=== PATIENT | female | born 1960 | race Caucasian/White ===

== ENCOUNTER 2016-07-09 11:33 | Emergency (ER) | payer OTHER ==
[~2016-07-09] VITALS: Ht 165.1 cm; Wt 118.6 kg
[~2016-07-09 11:33] MED LIST: ALBUTEROL SULFAT4 M1 PO; AMBIEN10 MG; AMITRIPTYLINE H25 MG PO; ASPIRIN325 MG PO; ATENOLOL PO; ATENOLOL25 M1 PO; Aspirin PO; Ecotrin PO; FOLIC ACID1 MG PO; HYDROCHLOROTHIA25 MG PO; IMDUR30 MG PO; ISOSORBIDE DINI30 MG PO; KLONOPIN1 MG PO; LANSOPRAZOLE PO; LANSOPRAZOLE30 MG PO; LEVOTHROID,S0.175 M1 PO; LEVOTHROID200 MCG PO; LEVOTHYROXINE200 MC1 PO; LEVOXYL175 MCG PO; LIPITOR80 MG PO; LISINOPRIL5 MG PO; Levothroid,Synthroid PO; MELOXICAM15 MG PO; MIRAPEX0.25 MG PO; MITRAZOL 2% CRE45 GM TP; OMEPRAZOLE40 M1 PO; PLAVIX75 MG PO; PREVACID30 MG PO; PROTONIX40 M1 PO; Pravachol PO; Protonix PO; SIMVASTATIN40 MG PO; TENORMIN25 MG PO; TESSALON PERLE100 MG PO; THEO-24200 MG PO; THEOPHYLLINE A200 M1 PO; Tenormin PO; Theo-Dur,Theocron PO; Tylenol Regular Stre PO; VOSPIRE ER4 MG PO; ZESTRIL,PRINIVIL5 MG PO; ZITHROMAX Z-PA250 MG PO; Zantac PO; Zocor PO
[2016-07-09] MEDS ORDERED: VIBRAMYCIN100 MG PO (14:05)
[2016-07-09] MEDS ORDERED: ULTRAM50 MG PO (14:05)
[2016-07-09] MEDS ORDERED: NAPROSYN500 MG PO (14:13)
[2016-07-09 14:42] VITALS: BP 128/70
== END 2016-07-09 14:43 | disposition home or self-care (01) ==
LOC: EME 11:33
PROC: 0H9EXZX Drainage of Left Lower Arm Skin, External Approach, Diagnostic (ICD-10-PCS; principal; 2016-07-09)
DX: L02.414 Cutaneous abscess of left upper limb (principal); L03.114 Cellulitis of left upper limb; I10 Essential (primary) hypertension; I25.2 Old myocardial infarction; F17.200 Nicotine dependence, unspecified, uncomplicated; Z88.6 Allergy status to analgesic agent
CPT/HCPCS: 87070; 87075; 87077; 87147; 87186; 87205; 99281; 99283

== ENCOUNTER 2016-11-19 13:50 | Emergency (ER) | payer OTHER ==
[~2016-11-19 13:50] MED LIST changes: +NAPROSYN500 MG PO; +ULTRAM50 MG PO; +VIBRAMYCIN100 MG PO
[2016-11-19] MEDS ORDERED: BACTRIM,SEPT1 TABLET PO (15:04)
[2016-11-19] MEDS ORDERED: NAPROSYN500 MG PO (15:04)
[2016-11-19 15:10] VITALS: BP 135/64
== END 2016-11-19 15:10 | disposition home or self-care (01) ==
LOC: EME 13:50
PROC: 0H9EXZZ Drainage of Left Lower Arm Skin, External Approach (ICD-10-PCS; principal; 2016-11-19)
DX: L02.414 Cutaneous abscess of left upper limb (principal); Z86.14 Personal history of Methicillin resistant Staphylococcus aureus infection; I10 Essential (primary) hypertension; E78.00 Pure hypercholesterolemia, unspecified; E03.9 Hypothyroidism, unspecified; Z79.02 Long term (current) use of antithrombotics/antiplatelets; Z79.82 Long term (current) use of aspirin; F17.200 Nicotine dependence, unspecified, uncomplicated
CPT/HCPCS: 99281; 99284

== ENCOUNTER 2017-04-12 13:27 | Emergency (ER) | payer OTHER ==
[~2017-04-12] VITALS: Ht 165.1 cm; Wt 117.4 kg
[~2017-04-12 13:27] MED LIST changes: +ATENOLOL25 MG PO; +BACTRIM,SEPT1 TABLET PO; +BROVANA15 MCG/2 M IH; +PULMICORT0.5 MG/21 IH; +SEROQUEL200 MG PO; +ULTRACET1 TABLET PO; +VITAMIN D31000 UNIT PO; +ZETIA10 MG PO
[2017-04-12 16:48] LABS: CHLORIDE 98 mEq/L (99-109); POTASSIUM 4.1 mEq/L (3.7-5.4); SODIUM 134 mEq/L (136-147)
[2017-04-12 16:50] LABS: GLUCOSE 88 mg/dL (70-99)
[2017-04-12 16:51] LABS: ANION GAP 12 MEQ/L (2-14)
[2017-04-12 16:52] LABS: TOTAL BILIRUBIN 0.5 mg/dL (0.0-1.0)
[2017-04-12 16:54] LABS: ALKALINE PHOSPHATASE 130 IU/L (3-129); GFR ESTIMATE (CALCULATED) 54 mL/min/
[2017-04-12 16:55] LABS: UREA NITROGEN (BUN) 22 mg/dL (9-23)
[2017-04-12 17:15] LABS: HEMATOCRIT 33.5 % (36.0-46.0); MCH 25.5 PG (29.0-34.0); MCHC 33.1 G/DL (30.0-36.0); MCV 76.8 FL (83-99); MEAN PLAT.VOLUME 9.7 uM^3 (9.5-12.4); PLATELET COUNT 244 K/uL (156-360); RBC DIS.WIDTH-CV 15.7 % (11.8-14.6); RBC DIS.WIDTH-SD 43.2 % (39-53); RED BLOOD COUNT 4.36 M/uL (3.80-5.20); WHITE BLOOD COUNT 6.7 K/uL (4.1-10.2)
[2017-04-12] MEDS ORDERED: LORTAB 5-325 M1 EACH PO (21:19)
[2017-04-12] MEDS ORDERED: MOTRIN600 MG PO (21:19)
[2017-04-13 00:24] VITALS: BP 105/78
[2017-04-14] MEDS ORDERED: PERCOCET 5/31 TABLET PO (22:02)
[2017-04-14] MEDS ORDERED: VALIUM5 MG PO (22:02)
== END 2017-04-13 00:25 | disposition home or self-care (01) ==
LOC: EME 13:27
PROVIDERS: Physician Assistant Medical
DX: S76.012D Strain of muscle, fascia and tendon of left hip, subsequent encounter (principal); Z91.81 History of falling
CPT/HCPCS: 73700; 80053; 81003; 85027; 86850; 86900; 86901; 99281; 99285; J2270; J2405

== ENCOUNTER → 2017-06-29 | Outpatient (CLI) | payer OTHER ==
[~2017-06-29] MED LIST changes: +LO-DOSE ASPIRIN81 M1 PO; +LORTAB 5-325 M1 EACH PO; +MOTRIN600 MG PO; +PERCOCET 5/31 TABLET PO; +PERCOCET 7.51 TABLET PO; +SYNTHROID137 MCG PO; +VALIUM5 MG PO; +VITAMIN D34000 UNIT PO; +XARELTO20 MG PO
== END | disposition home or self-care (01) ==
LOC: MRI 13:16 → RAD 13:30
DX: S72.042A Displaced fracture of base of neck of left femur, initial encounter for closed fracture (principal); M87.852 Other osteonecrosis, left femur; M25.452 Effusion, left hip
CPT/HCPCS: 73721

== ENCOUNTER 2017-07-01 10:11 | Inpatient (IN) | payer OTHER ==
[~2017-07-01] VITALS: Ht 165.1 cm; Wt 112.0 kg
[~2017-07-01 10:11] MED LIST changes: -LO-DOSE ASPIRIN81 M1 PO; -PERCOCET 7.51 TABLET PO; -SYNTHROID137 MCG PO; -VITAMIN D34000 UNIT PO; -XARELTO20 MG PO
[2017-07-01 11:07] LABS: HEMATOCRIT 30.6 % (36.0-46.0); HEMOGLOBIN 10.3 G/DL (11.9-15.5); MCH 25.8 PG (29.0-34.0); MCHC 33.7 G/DL (30.0-36.0); MCV 76.5 FL (83-99); PLATELET COUNT 211 K/uL (156-360); RBC DIS.WIDTH-CV 16.4 % (11.8-14.6); RBC DIS.WIDTH-SD 46.1 % (39-53); WHITE BLOOD COUNT 6.5 K/uL (4.1-10.2)
[2017-07-01 11:15] LABS: INTER. NORMALIZED RATIO 1.2
[2017-07-01 11:17] LABS: PTT 33.4 SEC (25-37)
[2017-07-01 11:18] LABS: ALBUMIN 3.8 g/dL (3.2-4.8)
[2017-07-01 11:19] LABS: CHLORIDE 92 mEq/L (99-109); POTASSIUM 5.1 mEq/L (3.7-5.4); SODIUM 126 mEq/L (136-147)
[2017-07-01 11:21] LABS: GLUCOSE 91 mg/dL (70-99); TOTAL PROTEIN 7.7 g/dL (6.4-8.3)
[2017-07-01 11:23] LABS: TOTAL BILIRUBIN 0.3 mg/dL (0.0-1.0)
[2017-07-01 11:24] LABS: ALKALINE PHOSPHATASE 124 IU/L (3-129)
[2017-07-01 11:25] LABS: CREATININE 0.9 mg/dL (0.6-1.3); GFR ESTIMATE (CALCULATED) > 59 mL/min/
[2017-07-01 11:26] LABS: AST (GOT) 26 IU/L (2-34); UREA NITROGEN (BUN) 21 mg/dL (9-23)
[2017-07-01 11:27] LABS: ALT (GPT) 12 IU/L (3-49)
[2017-07-01] MEDS ORDERED: SYNTHROID137 MCG PO (13:22)
[2017-07-01] MEDS ORDERED: VITAMIN D34000 UNIT PO (13:24)
[2017-07-01] MEDS ORDERED: LO-DOSE ASPIRIN81 M1 PO (13:24)
[2017-07-01] MEDS ORDERED: PERCOCET 7.51 TABLET PO (13:26)
[2017-07-01] MEDS ORDERED: XARELTO20 MG PO (13:27)
[2017-07-01 20:43] VITALS: BP 134/63
[2017-07-01 21:00] VITALS: BP 130/63
[2017-07-02 00:26] VITALS: BP 123/57
[2017-07-02 04:16] VITALS: BP 137/62
[2017-07-02 04:23] LABS: HEMATOCRIT 30.7 % (36.0-46.0); HEMOGLOBIN 10.4 G/DL (11.9-15.5); MCH 25.7 PG (29.0-34.0); MCHC 33.9 G/DL (30.0-36.0); PLATELET COUNT 203 K/uL (156-360); RBC DIS.WIDTH-CV 16.4 % (11.8-14.6); RBC DIS.WIDTH-SD 45.5 % (39-53); RED BLOOD COUNT 4.04 M/uL (3.80-5.20); WHITE BLOOD COUNT 7.8 K/uL (4.1-10.2)
[2017-07-02 04:35] LABS: CHLORIDE 96 mEq/L (99-109); POTASSIUM 4.3 mEq/L (3.7-5.4); SODIUM 130 mEq/L (136-147)
[2017-07-02 04:36] LABS: GLUCOSE 97 mg/dL (70-99)
[2017-07-02 04:40] LABS: CREATININE 0.9 mg/dL (0.6-1.3); GFR ESTIMATE (CALCULATED) > 59 mL/min/
[2017-07-02 04:41] LABS: UREA NITROGEN (BUN) 17 mg/dL (9-23)
[2017-07-02 10:54] LABS: HEMATOCRIT 27.6 % (36.0-46.0); HEMOGLOBIN 9.1 G/DL (11.9-15.5); MCV 78.4 FL (83-99)
[2017-07-02 16:04] VITALS: BP 92/55
[2017-07-02 20:11] VITALS: BP 91/55
[2017-07-02 23:53] VITALS: BP 84/52
[2017-07-03] VITALS (19 sets, daily range): BP systolic 74–122; BP diastolic 42–75
[2017-07-03 04:22] LABS: HEMATOCRIT 19.3 % (36.0-46.0); MCH 25.8 PG (29.0-34.0); MCHC 33.2 G/DL (30.0-36.0); MCV 77.8 FL (83-99); PLATELET COUNT 182 K/uL (156-360); RBC DIS.WIDTH-CV 16.4 % (11.8-14.6); RBC DIS.WIDTH-SD 47.4 % (39-53); WHITE BLOOD COUNT 7.4 K/uL (4.1-10.2)
[2017-07-03 04:23] LABS: HEMOGLOBIN 6.4 G/DL (11.9-15.5); RED BLOOD COUNT 2.48 M/uL (3.80-5.20)
[2017-07-03 04:28] LABS: CHLORIDE 96 mEq/L (99-109); POTASSIUM 4.6 mEq/L (3.7-5.4); SODIUM 130 mEq/L (136-147)
[2017-07-03 04:29] LABS: GLUCOSE 122 mg/dL (70-99)
[2017-07-03 04:33] LABS: CREATININE 0.8 mg/dL (0.6-1.3); GFR ESTIMATE (CALCULATED) > 59 mL/min/
[2017-07-03 04:34] LABS: UREA NITROGEN (BUN) 18 mg/dL (9-23)
[2017-07-03 04:52] LABS: APPEARANCE SL.HAZY ((CLEAR)); BILIRUBIN NEGATIVE; BLOOD NEGATIVE; COLOR YELLOW ((YELLOW)); GLUCOSE (STRIP) NEGATIVE; KETONES NEGATIVE; LEUKOCYTES MODERATE; NITRITE POSITIVE; PROTEIN (STRIP) NEGATIVE; SPECIFIC GRAVITY 1.023 (1.000-1.030); UROBILINOGEN 0.2 MG/DL (0.2-1.0)
[2017-07-03 05:42] LABS: BACTERIA NONE SEEN /HPF; EPITHELIAL CELLS 1+ /HPF; MUCUS TRACE /LPF; RED BLOOD CELLS 0-5 /HPF (0-5); WHITE BLOOD CELLS 20-30 /HPF (0-5)
[2017-07-03 16:46] LABS: HEMATOCRIT 25.8 % (36.0-46.0); MCV 78.7 FL (83-99)
[2017-07-03 16:47] LABS: HEMOGLOBIN 8.9 G/DL (11.9-15.5)
[2017-07-04 03:51] VITALS: BP 127/59
[2017-07-04 07:53] VITALS: BP 102/65
[2017-07-04 09:25] LABS: HEMATOCRIT 25.2 % (36.0-46.0); HEMOGLOBIN 8.6 G/DL (11.9-15.5); MCH 26.9 PG (29.0-34.0); MCHC 34.1 G/DL (30.0-36.0); MCV 78.8 FL (83-99); PLATELET COUNT 152 K/uL (156-360); RBC DIS.WIDTH-CV 16.2 % (11.8-14.6); RBC DIS.WIDTH-SD 46.6 % (39-53); WHITE BLOOD COUNT 8.5 K/uL (4.1-10.2)
[2017-07-04 09:50] LABS: CHLORIDE 97 MEQ/L (99-109); CREATININE 0.6 MG/DL (0.6-1.3); GFR ESTIMATE (CALCULATED) > 59 mL/min/; GLUCOSE 108 mg/dL (70-99); POTASSIUM 3.8 MEQ/L (3.7-5.4); SODIUM 129 MEQ/L (136-147); UREA NITROGEN (BUN) 10 mg/dL (9-23)
[2017-07-04 11:50] VITALS: BP 109/53
[2017-07-04 15:00] VITALS: BP 115/58
[2017-07-04 20:24] VITALS: BP 112/54
[2017-07-05 00:40] VITALS: BP 114/55
[2017-07-05 04:15] VITALS: BP 155/72
[2017-07-05 05:40] LABS: HEMATOCRIT 21.7 % (36.0-46.0); HEMOGLOBIN 7.2 G/DL (11.9-15.5); MCH 26.4 PG (29.0-34.0); MCHC 33.2 G/DL (30.0-36.0); MCV 79.5 FL (83-99); PLATELET COUNT 140 K/uL (156-360); RBC DIS.WIDTH-CV 16.6 % (11.8-14.6); RBC DIS.WIDTH-SD 48.1 % (39-53); RED BLOOD COUNT 2.73 M/uL (3.80-5.20); WHITE BLOOD COUNT 7.7 K/uL (4.1-10.2)
[2017-07-05 06:11] LABS: CHLORIDE 99 MEQ/L (99-109); CREATININE 0.6 MG/DL (0.6-1.3); GFR ESTIMATE (CALCULATED) > 59 mL/min/; GLUCOSE 110 mg/dL (70-99); POTASSIUM 3.5 MEQ/L (3.7-5.4); SODIUM 130 MEQ/L (136-147); UREA NITROGEN (BUN) 11 mg/dL (9-23)
[2017-07-05 07:50] VITALS: BP 119/59
[2017-07-05 10:11] LABS: HEMATOCRIT 25.3 % (36.0-46.0); HEMOGLOBIN 8.5 G/DL (11.9-15.5); MCV 80.3 FL (83-99)
[2017-07-05 11:25] LABS: STOOL OCCULT BLD 1ST SPECIMEN NEGATIVE
[2017-07-05 12:00] VITALS: BP 101/65
[2017-07-05 20:28] VITALS: BP 109/65
[2017-07-05 23:26] VITALS: BP 107/60
[2017-07-06 04:28] VITALS: BP 108/64
[2017-07-06 06:37] LABS: HEMATOCRIT 21.6 % (36.0-46.0); HEMOGLOBIN 7.1 G/DL (11.9-15.5); MCH 26.6 PG (29.0-34.0); MCHC 32.9 G/DL (30.0-36.0); MCV 80.9 FL (83-99); PLATELET COUNT 167 K/uL (156-360); RBC DIS.WIDTH-CV 16.7 % (11.8-14.6); RBC DIS.WIDTH-SD 49.2 % (39-53); RED BLOOD COUNT 2.67 M/uL (3.80-5.20)
[2017-07-06 06:41] LABS: CHLORIDE 99 MEQ/L (99-109); CREATININE 0.7 MG/DL (0.6-1.3); GFR ESTIMATE (CALCULATED) > 59 mL/min/; GLUCOSE 100 mg/dL (70-99); SODIUM 129 MEQ/L (136-147); UREA NITROGEN (BUN) 12 mg/dL (9-23)
[2017-07-06 06:42] LABS: POTASSIUM 4.3 MEQ/L (3.7-5.4)
[2017-07-06 08:24] VITALS: BP 120/56
[2017-07-06 10:37] LABS: CHLORIDE 99 MEQ/L (99-109); CREATININE 0.7 MG/DL (0.6-1.3); GFR ESTIMATE (CALCULATED) > 59 mL/min/; GLUCOSE 116 mg/dL (70-99); POTASSIUM 4.4 MEQ/L (3.7-5.4); SODIUM 133 MEQ/L (136-147); UREA NITROGEN (BUN) 10 mg/dL (9-23)
[2017-07-06 10:52] LABS: HEMATOCRIT 22.7 % (36.0-46.0); HEMOGLOBIN 7.4 G/DL (11.9-15.5); MCV 82.2 FL (83-99)
[2017-07-06 11:11] VITALS: BP 109/65
[2017-07-06 15:48] VITALS: BP 120/62
[2017-07-06 19:00] VITALS: BP 125/74
[2017-07-06 20:12] VITALS: BP 123/59
[2017-07-07 00:09] VITALS: BP 119/63
[2017-07-07 04:52] VITALS: BP 120/54
[2017-07-07 07:32] LABS: HEMATOCRIT 22.4 % (36.0-46.0); HEMOGLOBIN 7.5 G/DL (11.9-15.5); MCH 27.3 PG (29.0-34.0); MCHC 33.5 G/DL (30.0-36.0); MCV 81.5 FL (83-99); PLATELET COUNT 191 K/uL (156-360); RBC DIS.WIDTH-CV 17.2 % (11.8-14.6); RBC DIS.WIDTH-SD 51.4 % (39-53); RED BLOOD COUNT 2.75 M/uL (3.80-5.20); WHITE BLOOD COUNT 6.6 K/uL (4.1-10.2)
[2017-07-07 07:34] VITALS: BP 115/59
[2017-07-07 11:31] VITALS: BP 120/70
[2017-07-07 15:20] VITALS: BP 135/57
[2017-07-07 15:40] VITALS: BP 115/60
== END 2017-07-07 19:40 | DRG 470 ==
LOC: EME 10:11 → 3EAST 12:11 → EDOF 12:11 → ENRESERV 12:13 → 3EAST 20:32
PROVIDERS: Emergency Medicine; Hospitalist; Internal Medicine; Orthopaedic Surgery; Physician Assistant; Physician Assistant Surgical
PROC: 06H03DZ Insertion of Intraluminal Device into Inferior Vena Cava, Percutaneous Approach (ICD-10-PCS; principal; 2017-07-01)
PROC: B5191ZA Fluoroscopy of Inferior Vena Cava using Low Osmolar Contrast, Guidance (ICD-10-PCS; principal; 2017-07-01)
PROC: 3E0R3BZ Introduction of Anesthetic Agent into Spinal Canal, Percutaneous Approach (ICD-10-PCS; 2017-07-02)
PROC: 0SRB04A Replacement of Left Hip Joint with Ceramic on Polyethylene Synthetic Substitute, Uncemented, Open Approach (ICD-10-PCS; 2017-07-02)
PROC: 00HU33Z Insertion of Infusion Device into Spinal Canal, Percutaneous Approach (ICD-10-PCS; 2017-07-02)
PROC: 30233N1 Transfusion of Nonautologous Red Blood Cells into Peripheral Vein, Percutaneous Approach (ICD-10-PCS; 2017-07-03)
DX: S72.002A Fracture of unspecified part of neck of left femur, initial encounter for closed fracture (principal); W01.0XXA Fall on same level from slipping, tripping and stumbling without subsequent striking against object, initial encounter; I82.412 Acute embolism and thrombosis of left femoral vein; I82.422 Acute embolism and thrombosis of left iliac vein; Z93.0 Tracheostomy status; M87.252 Osteonecrosis due to previous trauma, left femur; D62 Acute posthemorrhagic anemia; E87.1 Hypo-osmolality and hyponatremia; I95.9 Hypotension, unspecified; E87.6 Hypokalemia; J43.9 Emphysema, unspecified; I10 Essential (primary) hypertension; I25.2 Old myocardial infarction; E66.9 Obesity, unspecified; Z68.41 Body mass index [BMI] 40.0-44.9, adult; E55.9 Vitamin D deficiency, unspecified; E78.00 Pure hypercholesterolemia, unspecified; E89.0 Postprocedural hypothyroidism; I25.10 Atherosclerotic heart disease of native coronary artery without angina pectoris; K21.9 Gastro-esophageal reflux disease without esophagitis; F17.210 Nicotine dependence, cigarettes, uncomplicated; Z91.81 History of falling; Z95.5 Presence of coronary angioplasty implant and graft; Z79.01 Long term (current) use of anticoagulants; Z79.02 Long term (current) use of antithrombotics/antiplatelets; Z79.82 Long term (current) use of aspirin; Z79.899 Other long term (current) drug therapy; Z60.2 Problems related to living alone; Z71.6 Tobacco abuse counseling; Z82.49 Family history of ischemic heart disease and other diseases of the circulatory system
CPT/HCPCS: 71045; 73501; 73522; 73721; 80048; 80048 91; 80053; 81003; 82272; 82948; 83605; 85014; 85018; 85027; 85610; 85730; 86850; 86900; 86901; 86920; 93005; 94640 76; 94799; 97530 GO; 97530 GP; 99202; 99281; 99285; C1769; C1894; G8987 CK; G8987 GO CL; J0131; J0690; J1100; J1170; J2250; J2270; J2405; J2710; J3010; J7042; J7120; P9016

== ENCOUNTER 2017-07-10 07:58 | Emergency (ER) | payer OTHER ==
[~2017-07-10] VITALS: Ht 165.1 cm; Wt 121.5 kg
[~2017-07-10 07:58] MED LIST changes: +LO-DOSE ASPIRIN81 M1 PO; +PERCOCET 7.51 TABLET PO; +SYNTHROID137 MCG PO; +VITAMIN D34000 UNIT PO; +XARELTO20 MG PO
[2017-07-10 08:39] LABS: HEMATOCRIT 31.9 % (36.0-46.0); HEMOGLOBIN 10.6 G/DL (11.9-15.5); IMM.RETIC FRACTION 35.5 % (3-19); MCH 26.9 PG (29.0-34.0); MCHC 33.2 G/DL (30.0-36.0); PLATELET COUNT 247 K/uL (156-360); RBC DIS.WIDTH-CV 16.7 % (11.8-14.6); RBC DIS.WIDTH-SD 49.1 % (39-53); RED BLOOD COUNT 3.94 M/uL (3.80-5.20); RETIC HGB EQUIVALENT 26.6 (28-36); RETICULOCYTE COUNT 2.2 % (0.5-1.8); WHITE BLOOD COUNT 5.6 K/uL (4.1-10.2)
[2017-07-10 08:48] LABS: CHLORIDE 99 mEq/L (99-109); POTASSIUM 4.2 mEq/L (3.7-5.4); SODIUM 134 mEq/L (136-147)
[2017-07-10 08:50] LABS: GLUCOSE 88 mg/dL (70-99)
[2017-07-10 08:54] LABS: CREATININE 0.8 mg/dL (0.6-1.3); GFR ESTIMATE (CALCULATED) > 59 mL/min/
[2017-07-10 08:55] LABS: UREA NITROGEN (BUN) 12 mg/dL (9-23)
[2017-07-10 10:30] VITALS: BP 103/62
== END 2017-07-10 12:36 | disposition home or self-care (01) ==
LOC: EME 07:58
PROVIDERS: Emergency Medicine Emergency Medical Services
DX: D64.9 Anemia, unspecified (principal); Z98.890 Other specified postprocedural states; Z96.649 Presence of unspecified artificial hip joint; Z86.718 Personal history of other venous thrombosis and embolism; Z79.01 Long term (current) use of anticoagulants; Z79.82 Long term (current) use of aspirin; R60.0 Localized edema; I10 Essential (primary) hypertension; E78.5 Hyperlipidemia, unspecified; J44.9 Chronic obstructive pulmonary disease, unspecified; Z93.0 Tracheostomy status; F17.200 Nicotine dependence, unspecified, uncomplicated
CPT/HCPCS: 80048; 85027; 85046; 86850; 86900; 86901; 99281; 99284

== ENCOUNTER 2017-09-13 18:14 | Inpatient (IN) | payer OTHER ==
[~2017-09-13] VITALS: Ht 165.1 cm; Wt 121.4 kg
[~2017-09-13 18:14] MED LIST changes: -MELOXICAM15 MG PO; +VITAMIN D22000 UNIT PO; -VITAMIN D34000 UNIT PO
[2017-09-13 23:33] LABS: BASOPHIL (%) 0.2 % (0-1); EOSINOPHIL (%) 0.1 % (0-5); HEMATOCRIT 31.1 % (36.0-46.0); HEMOGLOBIN 10.2 G/DL (11.9-15.5); IMMATURE GRANULOCYTE (%) 0.5 % (0.0-0.7); LYMPHOCYTE (%) 9.5 % (15-42); MCH 26.2 PG (29.0-34.0); MCHC 32.8 G/DL (30.0-36.0); MCV 79.7 FL (83-99); MONOCYTE (%) 3.2 % (3-12); MONOCYTE COUNT 0.3 K/uL (0-0.8); NEUTROPHIL (%) 86.5 % (45-76); NEUTROPHIL COUNT 9.2 K/uL (1.8-6.4); PLATELET COUNT 262 K/uL (156-360); RBC DIS.WIDTH-CV 15.4 % (11.8-14.6); RBC DIS.WIDTH-SD 44.4 % (39-53); WHITE BLOOD COUNT 10.7 K/uL (4.1-10.2)
[2017-09-13 23:41] LABS: CHLORIDE 107 mEq/L (99-109); INTER. NORMALIZED RATIO 2.1; SODIUM 142 mEq/L (136-147)
[2017-09-13 23:43] LABS: GLUCOSE 117 mg/dL (70-99); PTT 35.1 SEC (25-37)
[2017-09-13 23:47] LABS: CREATININE 0.8 mg/dL (0.6-1.3); GFR ESTIMATE (CALCULATED) > 59 mL/min/; UREA NITROGEN (BUN) 12 mg/dL (9-23)
[2017-09-14] MEDS ORDERED: ALENDRONATE SOD35 MG PO (00:47)
[2017-09-14] MEDS ORDERED: VITAMIN B-121000 MC4 SL (00:48)
[2017-09-14] MEDS ORDERED: ACETAMINOPHN-T1 EACH PO (00:49)
[2017-09-14] MEDS ORDERED: OXYCODONE-APAP1 EAC6 PO (00:50)
[2017-09-14] MEDS ORDERED: LISINOPRIL20 MG PO (00:50)
[2017-09-14] MEDS ORDERED: FUROSEMIDE20 MG PO (00:50)
[2017-09-14] MEDS ORDERED: MELOXICAM15 MG PO (00:51)
[2017-09-14] MEDS ORDERED: ATORVASTATIN CA80 MG PO (00:51)
[2017-09-14] MEDS ORDERED: ZESTRIL20 MG PO (03:30)
[2017-09-14] MEDS ORDERED: MELOXICAM7.5 MG PO (03:31)
[2017-09-14 03:51] VITALS: BP 135/77
[2017-09-14 06:00] LABS: HEMATOCRIT 28.4 % (36.0-46.0); HEMOGLOBIN 9.3 G/DL (11.9-15.5); MCH 26.5 PG (29.0-34.0); MCHC 32.7 G/DL (30.0-36.0); MCV 80.9 FL (83-99); PLATELET COUNT 250 K/uL (156-360); RBC DIS.WIDTH-CV 15.5 % (11.8-14.6); RBC DIS.WIDTH-SD 45.7 % (39-53); RED BLOOD COUNT 3.51 M/uL (3.80-5.20); WHITE BLOOD COUNT 8.7 K/uL (4.1-10.2)
[2017-09-14 07:50] LABS: HEMOGLOBIN 8.8 G/DL (11.9-15.5); MCH 26.3 PG (29.0-34.0); MCHC 32.6 G/DL (30.0-36.0); MCV 80.8 FL (83-99); PLATELET COUNT 219 K/uL (156-360); RBC DIS.WIDTH-CV 15.5 % (11.8-14.6); RBC DIS.WIDTH-SD 45.6 % (39-53); RED BLOOD COUNT 3.34 M/uL (3.80-5.20); WHITE BLOOD COUNT 8.6 K/uL (4.1-10.2)
[2017-09-14 08:26] VITALS: BP 134/63
[2017-09-14 12:09] VITALS: BP 139/78
[2017-09-14 12:30] LABS: HEMATOCRIT 28.6 % (36.0-46.0); HEMOGLOBIN 9.2 G/DL (11.9-15.5); MCH 26.1 PG (29.0-34.0); MCHC 32.2 G/DL (30.0-36.0); PLATELET COUNT 259 K/uL (156-360); RBC DIS.WIDTH-CV 15.6 % (11.8-14.6); RBC DIS.WIDTH-SD 45.3 % (39-53); RED BLOOD COUNT 3.53 M/uL (3.80-5.20); WHITE BLOOD COUNT 9.5 K/uL (4.1-10.2)
[2017-09-14 16:44] LABS: HEMATOCRIT 29.5 % (36.0-46.0); HEMOGLOBIN 9.3 G/DL (11.9-15.5); MCH 25.4 PG (29.0-34.0); MCHC 31.5 G/DL (30.0-36.0); MCV 80.6 FL (83-99); PLATELET COUNT 256 K/uL (156-360); RBC DIS.WIDTH-CV 15.5 % (11.8-14.6); RBC DIS.WIDTH-SD 46.1 % (39-53); RED BLOOD COUNT 3.66 M/uL (3.80-5.20); WHITE BLOOD COUNT 9.3 K/uL (4.1-10.2)
[2017-09-14 16:45] VITALS: BP 138/71
[2017-09-14 19:36] VITALS: BP 134/78
[2017-09-14 23:28] VITALS: BP 150/70
[2017-09-15 05:38] LABS: BASOPHIL (%) 0.3 % (0-1); EOSINOPHIL (%) 2.2 % (0-5); EOSINOPHIL COUNT 0.2 K/uL (0-0.3); HEMATOCRIT 25.2 % (36.0-46.0); HEMOGLOBIN 8.1 G/DL (11.9-15.5); IMMATURE GRANULOCYTE (%) 0.3 % (0.0-0.7); LYMPHOCYTE (%) 26.1 % (15-42); LYMPHOCYTE COUNT 1.8 K/uL (1.0-2.8); MCHC 32.1 G/DL (30.0-36.0); MONOCYTE (%) 8.4 % (3-12); MONOCYTE COUNT 0.6 K/uL (0-0.8); NEUTROPHIL (%) 62.7 % (45-76); NEUTROPHIL COUNT 4.4 K/uL (1.8-6.4); PLATELET COUNT 194 K/uL (156-360); RBC DIS.WIDTH-CV 15.6 % (11.8-14.6); RBC DIS.WIDTH-SD 46.2 % (39-53); RED BLOOD COUNT 3.11 M/uL (3.80-5.20); WHITE BLOOD COUNT 6.9 K/uL (4.1-10.2)
[2017-09-15 05:43] LABS: ALBUMIN 3.3 G/DL (3.2-4.8); ALKALINE PHOSPHATASE 110 IU/L (3-129); ALT (GPT) 8 IU/L (3-49); AST (GOT) 11 IU/L (2-34); CHLORIDE 107 MEQ/L (99-109); CREATININE 0.7 MG/DL (0.6-1.3); GFR ESTIMATE (CALCULATED) > 59 mL/min/; GLUCOSE 91 mg/dL (70-99); POTASSIUM 3.3 MEQ/L (3.7-5.4); SODIUM 139 MEQ/L (136-147); TOTAL BILIRUBIN 0.5 MG/DL (0.0-1.0); TOTAL PROTEIN 6.4 G/DL (6.4-8.3); UREA NITROGEN (BUN) 14 mg/dL (9-23)
[2017-09-15 07:22] VITALS: BP 123/63
[2017-09-15 17:12] VITALS: BP 109/73
[2017-09-15 23:53] VITALS: BP 103/71
[2017-09-16 05:03] LABS: BASOPHIL (%) 0.3 % (0-1); EOSINOPHIL (%) 3.1 % (0-5); EOSINOPHIL COUNT 0.2 K/uL (0-0.3); HEMATOCRIT 24.4 % (36.0-46.0); IMMATURE GRANULOCYTE (%) 0.2 % (0.0-0.7); LYMPHOCYTE (%) 22.6 % (15-42); LYMPHOCYTE COUNT 1.5 K/uL (1.0-2.8); MCH 26.7 PG (29.0-34.0); MCHC 32.8 G/DL (30.0-36.0); MCV 81.3 FL (83-99); MONOCYTE (%) 8.2 % (3-12); MONOCYTE COUNT 0.5 K/uL (0-0.8); NEUTROPHIL (%) 65.6 % (45-76); NEUTROPHIL COUNT 4.2 K/uL (1.8-6.4); PLATELET COUNT 184 K/uL (156-360); RBC DIS.WIDTH-CV 15.6 % (11.8-14.6); RBC DIS.WIDTH-SD 46.3 % (39-53); WHITE BLOOD COUNT 6.5 K/uL (4.1-10.2)
[2017-09-16 05:03] LABS: ALBUMIN 3.5 g/dL (3.2-4.8); CHLORIDE 108 mEq/L (99-109); POTASSIUM 3.5 mEq/L (3.7-5.4); SODIUM 143 mEq/L (136-147)
[2017-09-16 05:05] LABS: GLUCOSE 91 mg/dL (70-99); TOTAL PROTEIN 6.5 g/dL (6.4-8.3)
[2017-09-16 05:07] LABS: TOTAL BILIRUBIN 0.6 mg/dL (0.0-1.0)
[2017-09-16 05:09] LABS: ALKALINE PHOSPHATASE 132 IU/L (3-129); CREATININE 0.8 mg/dL (0.6-1.3); GFR ESTIMATE (CALCULATED) > 59 mL/min/
[2017-09-16 05:10] LABS: UREA NITROGEN (BUN) 14 mg/dL (9-23)
[2017-09-16 05:11] LABS: AST (GOT) 11 IU/L (2-34)
[2017-09-16 05:12] LABS: ALT (GPT) 8 IU/L (3-49)
[2017-09-16 07:25] VITALS: BP 118/74
[2017-09-16 10:35] VITALS: BP 112/72
== END 2017-09-16 13:42 | disposition home health service (06) | DRG 556 ==
LOC: EME 18:14 → EDOF 09-14 01:58 → 3EAST 09-14 01:58 → ENRESERV 09-14 01:59 → 3EAST 09-14 03:10
PROVIDERS: Emergency Medicine; Hospitalist; Physician Assistant
DX: M79.81 Nontraumatic hematoma of soft tissue (principal); Z68.41 Body mass index [BMI] 40.0-44.9, adult; T45.515A Adverse effect of anticoagulants, initial encounter; J44.9 Chronic obstructive pulmonary disease, unspecified; Z96.642 Presence of left artificial hip joint; Z79.01 Long term (current) use of anticoagulants; I25.10 Atherosclerotic heart disease of native coronary artery without angina pectoris; I10 Essential (primary) hypertension; Z95.5 Presence of coronary angioplasty implant and graft; F32.9 Major depressive disorder, single episode, unspecified; E66.9 Obesity, unspecified; F17.210 Nicotine dependence, cigarettes, uncomplicated; Z93.0 Tracheostomy status; S76.012A Strain of muscle, fascia and tendon of left hip, initial encounter; E78.5 Hyperlipidemia, unspecified; M48.061 Spinal stenosis, lumbar region without neurogenic claudication; Z86.718 Personal history of other venous thrombosis and embolism; Z82.49 Family history of ischemic heart disease and other diseases of the circulatory system; I25.2 Old myocardial infarction; D62 Acute posthemorrhagic anemia; E89.0 Postprocedural hypothyroidism; Z79.82 Long term (current) use of aspirin; Z79.899 Other long term (current) drug therapy; K21.9 Gastro-esophageal reflux disease without esophagitis
CPT/HCPCS: 72131; 72192; 73502; 74177; 80048; 80053; 85025; 85027; 85610; 85730; 86850; 86900; 86901; 99281; 99285; J1885

== ENCOUNTER → 2017-12-03 | Outpatient (CLI) | payer MEDICARE, OTHER ==
[~2017-12-03] MED LIST changes: +ACETAMINOPHN-T1 EACH PO; +ALENDRONATE SOD35 MG PO; +ATORVASTATIN CA80 MG PO; +FUROSEMIDE20 MG PO; +LISINOPRIL20 MG PO; +MELOXICAM15 MG PO; +MELOXICAM7.5 MG PO; +OXYCODONE-APAP1 EAC6 PO; +VITAMIN B-121000 MC4 SL; +ZESTRIL20 MG PO
== END | disposition home or self-care (01) ==
LOC: CDC 13:14
DX: Z01.810 Encounter for preprocedural cardiovascular examination (principal); I70.25 Atherosclerosis of native arteries of other extremities with ulceration; R94.31 Abnormal electrocardiogram [ECG] [EKG]
CPT/HCPCS: 93000